=== PATIENT | male | born 1980 | race Caucasian/White ===

== ENCOUNTER 2021-08-23 12:01 | Emergency (ER) | payer OTHER ==
[~2021-08-23 12:01] MED LIST: ACIPHEX20 MG PO; DAYPRO600 M1 PO; FLEXERIL5 MG PO; MEDROL DOSEPAK4 MG PO; MOTRIN800 MG PO; NKHM; NORFLEX100 MG PO; PHENERGAN25 MG RC; ROBAXIN750 MG PO; TOBRADEX 0.1%-0.5 ML OPH; TRAMADOL HCL50 MG PO; TYLENOL ES500 MG PO; ULTRAM50 MG PO; VICODIN 5/500 505 MG PO; VICODIN 500 MG-1 TAB PO
[2021-08-23] MEDS ORDERED: CEPHALEXIN500 M1 PO (13:14)
== END 2021-08-23 13:17 | disposition home or self-care (01) ==
LOC: ED 12:01
DX: S90.852A Superficial foreign body, left foot, initial encounter (principal); Z98.890 Other specified postprocedural states; W22.8XXA Striking against or struck by other objects, initial encounter; Y93.89 Activity, other specified; Y92.89 Other specified places as the place of occurrence of the external cause; Y99.9 Unspecified external cause status

== ENCOUNTER 2023-10-10 00:26 | Emergency (ER) | payer OTHER ==
[~2023-10-10] VITALS: Ht 177.8 cm; Wt 77.1 kg
[~2023-10-10 00:26] MED LIST changes: +CEPHALEXIN500 M1 PO
== END 2023-10-10 04:50 | disposition home or self-care (01) ==
LOC: ED 00:26
DX: S16.1XXA Strain of muscle, fascia and tendon at neck level, initial encounter (principal); M25.512 Pain in left shoulder; Z98.890 Other specified postprocedural states; V89.2XXA Person injured in unspecified motor-vehicle accident, traffic, initial encounter; Y93.89 Activity, other specified; Y92.410 Unspecified street and highway as the place of occurrence of the external cause; Y99.8 Other external cause status